=== PATIENT | female | born 1955 | race Two or more races ===

== ENCOUNTER → 2016-11-16 | Outpatient (CLI) | payer MEDICARE, OTHER ==
--- NOTE | 2016-11-29 02:50 | ECWPNPC ---
PATIENT NAME: MALCOLM ROSS : 1955 GENDER: FEMALE VISIT DATE: 11/16/2016 DISCHARGE DATE: 11/16/16 1426 VISIT LOCKED DATE TIME: PHYSICIAN: LAKSHMI IBRAHIM RESOURCE: LAKSHMI IBRAHIM REASON FOR APPOINTMENT 1. NECK W/C HISTORY OF PRESENT ILLNESS GENERAL: 61 YEAR OLD FEMALE PATIENT WITH HISTORY OF CHRONIC NECK PAIN. PATIENT DESCRIBES THE PAIN ACHING WITH THE PAIN COMING AND GOING AND A PAIN SCORE OF 2/10. 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 PATIENT REPORTS HAVING 3 NECKS SURGERIES SINCE THE ACCIDENT AND STATES THAT THEY HELPED FOR A PERIOD OF TIME AND THEN THE PAIN WOULD COME BACK. MRS. ROSS STATES THAT PHYSICAL THERAPY DOES HELP WITH PAIN AND INCREASES HER MOBILITY AND FUNCTIONALITY. PATIENT STATES THAT SHE WALKS 3 MILES A DAY TO STAY ACTIVE. CURRENTLY THE PATIENT IS USING NUCYNTA AND SHE STATES SHE USES THE MEDICATION NEEDED AND DOES NOT WANT TO USE MANY MEDICATIONS FOR THIS PROBLEM. PATIENT DENIES UNEXPLAINABLE WEIGHT LOSS, FEVER, CHILLS, NEW CHANGES ON HER URINARY OR BOWEL CONTROL. CURRENT MEDICATIONS TAKING NUCYNTA 75 MG TABLET 1 TABLET ORALLY EVERY 6 HRS TAKING SUMATRIPTAN SUCCINATE 50 MG TABLET 1 TABLET ORALLY Q 6 H PRN TAKING PRASHANT ALLERGY 180 MG TABLET 1 TABLET NEEDED ORALLY ONCE A DAY TAKING EXCEDRIN EXTRA STRENGTH 250-250-65 MG TABLET 1 TABLETS NEEDED ORALLY EVERY 6 HRS TAKING RANITIDINE HCL 300 MG TABLET TAKE ONE TABLET BY MOUTH AT BEDTIME ORAL TAKING NORTRIPTYLINE HCL 10 MG CAPSULE TAKE 1 CAP ORAL 1 TAB IN A.M., 2 IN P.M. TAKING CYCLOBENZAPRINE HCL 10 MG TABLET TAKE 1 TABLET BY MOUTH TWICE A DAY ORAL TAKING SIMVASTATIN 20 MG TABLET TAKE ONE TABLET BY MOUTH EVERY EVENING ORAL TAKING SYMBICORT 160-4.5 MCG/ACT AEROSOL INHALE TWO PUFFS BY MOUTH TWICE A DAY INHALATION PRN TAKING PREMPRO 0.625-5 MG TABLET TAKE ONE TABLET BY MOUTH EVERY DAY ORAL TAKING ESCITALOPRAM OXALATE 10 MG TABLET TAKE ONE TABLET BY MOUTH EVERY DAY ORAL TAKING PROAIR HFA 108 (90 BASE) MCG/ACT AEROSOL SOLUTION INHALE TWO PUFFS BY MOUTH EVERY 8 HOURS NEEDED INHALATION MEDICATION LIST REVIEWED AND RECONCILED WITH THE PATIENT PAST MEDICAL HISTORY HTN GERD MIGRAINE HEADACHES ANXIETY / DEPRESSION ASTHMA HIGH CHOLESTEROL ATYPICAL CHEST PAIN CHRONIC DIARRHEA CHRONIC SINUSITIS - ALLERGIC RHINITIS NECK / MUSCLE SPASM ON COMP ALLERGIES NOVACAINE: SEIZURE: ALLERGY PREDNISONE: HUGE HIVES: ALLERGY SURGICAL HISTORY NECK SURGERY C6-7 2005 / 2008 CARPAL TUNNEL RIGHT HAND 1999 BUNION RIGHT TOE 2001 RIGHT FOOT SURGERY 2006 TRIGGER FINGER RELEASE RIGHT THUMB 2010 NECK SPINAL FUSION 2014 SURGERY TO RIGHT GREAT TOE 2014 TONSILS TUMMY TUCK 2005 FAMILY HISTORY FATHER: 69 YRS, DIAGNOSED WITH HYPERTENSION, HEART DISEASE, CANCER MOTHER: 64 YRS FATHER--COLON CAMOTHER WIH PE, CHRONES, LEG ANEURISM. SOCIAL HISTORY GENERAL: TOBACCO USE ARE YOU A:FORMER SMOKER QUIT 1993 ALCOHOL SCREENING POINTS2 INTERPRETATIONNEGATIVE RECREATIONAL DRUG USE DRUG USE?NO CAFFEINE CAFFEINE USE?YES HOW OFTEN AND HOW MUCH? 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 DIET: REGULAR. EXERCISE: WALKS DAILY. MARITAL STATUS: SINGLE WITH LIFE PARTNER. OTHERS AT HOME: OTHER NON-RELATIVE--SIG. OTHER. PETS: 1 DOG. BUDDHISM [id number] [employer]VENT[employer] LANGUAGE LANGUAGES SPOKEN:CZECH EDUCATION LEVEL OF EDUCATION:NOT FINISHED COLLEGE LEARNING BARRIERS / SPECIAL NEEDS BARRIERS TO LEARNING?NO HEARING IMPAIRED?NO VISION IMPAIRED?NO COGNITIVELY IMPAIRED?NO READINESS TO LEARN?YES LEARNING PREFERENCES?YES :DEMONSTRATION/VERBAL INSTRUCTION EMOTIONAL BARRIERS?NO SPECIAL DEVICES?NO TICKET SALES SUPERVISOR NEEDED?NO PAIN CLINIC PFS, CLERGY, PUBLIC HEALTH REFERRALS PFS REFERRAL NEEDED?NO CLERGY REFERRAL NEEDED?NO PUBLIC HEALTH REFERRAL NEEDED?NO ADVANCE DIRECTIVES HEALTH CARE PROXY?YES NAME OF HCP AMRTI DIOROSITO CONTACT # FOR HCP [phone] (C) [phone] (H) DO YOU HAVE A COPY WITH YOU?YES DO YOU HAVE A DNR?NO LIVING WILL?YES DO YOU HAVE A COPY WITH YOU?YES POWER OF DRY ROOM ATTENDANT?YES NAME OF POA? JEREMÍAS HILL PHONE # OF POA? [phone] DO YOU HAVE A COPY WITH YOU?NO HAVE YOU HAD A COPY OF ANY ADVANCED DIRECTIVE (LISTED ABOVE) ON A PREVIOUS MEDICAL RECORDS AT [facility]?NO NO DOMESTIC VIOLENCE . PLAN OF CARE FOR THE PAIN CENTER REVIEWED WITH PATIENT AND SHE VERBALIZED UNDERSTANDING. AD. HOSPITALIZATION/MAJOR DIAGNOSTIC PROCEDURE SURGERIES VITAL SIGNS WT 163 LBS, HT 64 IN, BMI 27.98 INDEX, BP 152/77 MM HG, HR 75 /MIN, RR 18 /MIN, TEMP 98.5 F, OXYGEN SAT % 97, REVIEWED BY: AD. EXAMINATION GENERAL: PATIENT IS ALERT O X 3 AND COOPERATIVE. TENDERNESS IN THE CERVICAL AREA AND THE PARASPINAL MUSCLE GROUP ESPECIALLY IN THE LEFT SIDE. BANDS OF TISSUE, RESTRICTION OF MOVEMENT, AND PRESENCE OF TRIGGER POINTS IN THE CERVICAL AREA. PATIENT ABLE TO EXTEND NECK 15 DEGREES AND FLEX 25 DEGREES. ABDUCT BOTH ARMS TO SHOULDER LEVEL. LEFT ARM AND HAND BUDGET COORDINATOR IS WEAKER THEN THE RIGHT. PENDING CERVICAL MRI. ASSESSMENTS POSTLAMINECTOMY SYNDROME, NOT ELSEWHERE CLASSIFIED - M96.1 (PRIMARY) MYALGIA - M79.1 TREATMENT POSTLAMINECTOMY SYNDROME, NOT ELSEWHERE CLASSIFIED NOTES: WE DISCUSSED SEVERAL ISSUES WITH MRS. ROSS'S PAIN MANAGEMENT CASE. AT THIS TIME THE PATIENT WILL CONTINUE USING NUCYNTA NEEDED PRESCRIBED BY HER PRIMARY DOCTOR. I WOULD LIKE THE PATIENT TO START USING IBUPROFEN NEEDED. PATIENT WAS ADVISED TO USE MEDICATION WITH FOOD AND ADVISED OF THE POSSIBLE ISSUES THAT CAN ARISE WHEN USING TOO MUCH IBUPROFEN. DUE TO THE SPASTICITY IN THE LEFT CERVICAL AREA I WOULD LIKE TO MOVE FORWARD WITH TRIGGER POINT INJECTIONS. WE DISCUSSED THE RISKS, BENEFITS, AND ALTERNATIVES TO THE INJECTION AND THE PATIENT WOULD LIKE TO PROCEED. INSTRUCTIONS WERE GIVEN, QUESTIONS WERE ANSWERED, PATIENT REPORTS UNDERSTANDING AND AGREES WITH THE PLAN. I, MANJINDER CASTILLO, DOCUMENTED THE ABOVE INFORMATION ACTING A SCRIBE FOR DR. IBRAHIM. I HAVE REVIEWED THE ABOVE DOCUMENT, WRITTEN BY MANJINDER LEVINE AND I VERIFY THAT IT IS ACCURATE. DEAR DR. SMITH: THANK YOU FOR YOUR KIND REFERRAL OF MRS. VILLARREAL. YOU WANT TO DISCUSS HER CASE WITH ME PLEASE CALL ME AT THE PAIN CENTER AT [phone]. SINCERELY, LAKSHMI IBRAHIM MD PAIN MEDICINE.,TRIGGER POINT INJECTION: YOUR EXPERIENCE MATERIAL WAS PRINTED,TRIGGER POINT INJECTION MATERIAL WAS PRINTED. OTHERS START IBUPROFEN TABLET, 800 MG, 1 TABLET WITH FOOD OR MILK, ORALLY, EVERY 6 HOURS NEEDED FOR PAIN MDD3, 30 DAY(S), 50, REFILLS 2 PROCEDURES PN WORKMANS' COMP OPINION IN YOUR OPINION, WAS THE INCIDENT THAT THE PATIENT DESCRIBED THE COMPETENT MEDICAL CAUSE OF THIS INJURY/ILLNESS? YES ARE THE PATIENT'S COMPLAINTS CONSISTENT WITH HIS/HER HISTORY OF THE INJURY/ILLNESS? YES IS THE PATIENT'S HISTORY OF THE INJURY/ILLNESS CONSISTENT WITH YOUR OBJECTIVE FINDING? YES WHAT IS THE PERCENTAGE OF TEMPORARY IMPAIRMENT? MODERATE TO MARKED = 66.7% IS THE PATIENT WORKING? NO DOCTOR ON SITE: LAKSHMI GALLAGHER MD PREVENTIVE MEDICINE DISCUSSED PREPROCEDURE CARE AND WHAT TO EXPECT WITH TPI/ PT EXPRESSED UNDERSTANDING. PROCEDURE CODES FA211 ESTABILISHED PATIENT [facility] FACILITY CHARGE G8427 DOC MEDS VERIFIED W/PT OR RE G8730 PAIN ASSESS POS TOOL F/U PLAN DOC DISPOSITION & COMMUNICATION FOLLOW UP TPI NO STERIODS AFTER APPROVAL ELECTRONICALLY SIGNED BY LAKSHMI IBRAHIM MD ON 11/28/2016 AT 04:30 PM EDT DISCLAIMER : THIS IS A VISIT SUMMARY EXTRACTED FROM THE [employer] CHART. IT IS NOT A COPY OF THE [employer] PROGRESS NOTE. PAULINO
== END ==
LOC: M PAIN 12:40
PROVIDERS: ATTEND Anesthesiology
DX: M96.1 Postlaminectomy syndrome, not elsewhere classified (principal); M79.1 Myalgia; Z79.891 Long term (current) use of opiate analgesic; Z79.899 Other long term (current) drug therapy; Z87.891 Personal history of nicotine dependence; Z88.6 Allergy status to analgesic agent; Z88.8 Allergy status to other drugs, medicaments and biological substances

== ENCOUNTER → 2016-12-20 | Outpatient (CLI) | payer MEDICARE, OTHER ==
[~2016-12-20] MED LIST: BUPIVACAINE HCL 0.25% 10 ML VIAL As Ordered ONE; BUPIVACAINE HCL 0.25% 30 ML VIAL As Ordered ONE; diazePAM 5 MG TAB As Ordered ONE; oxyCODONE 5MG TAB As Ordered ONE
--- NOTE | 2016-12-25 23:26 | ECWPNPC ---
PATIENT NAME: MALCOLM ROSS : 1955 GENDER: FEMALE VISIT DATE: 12/20/2016 DISCHARGE DATE: 12/20/16 1135 VISIT LOCKED DATE TIME: PHYSICIAN: LAKSHMI IBRAHIM RESOURCE: LAKSHMI IBRAHIM REASON FOR APPOINTMENT 1. TPI CURRENT MEDICATIONS TAKING NUCYNTA 75 MG TABLET 1 TABLET ORALLY EVERY 6 HRS, NOTES: 12-19-16 0800 TAKING SUMATRIPTAN SUCCINATE 50 MG TABLET 1 TABLET ORALLY Q 6 H PRN, NOTES: NONE TAKING PRASHANT ALLERGY 180 MG TABLET 1 TABLET NEEDED ORALLY ONCE A DAY, NOTES: 12-16-16 TAKING EXCEDRIN EXTRA STRENGTH 250-250-65 MG TABLET 1 TABLETS NEEDED ORALLY EVERY 6 HRS, NOTES: 12-19-16 1400 TAKING RANITIDINE HCL 300 MG TABLET TAKE ONE TABLET BY MOUTH AT BEDTIME ORAL , NOTES: 12-18-16 TAKING NORTRIPTYLINE HCL 10 MG CAPSULE TAKE 1 CAP ORAL 1 TAB IN A.M., 2 IN P.M., NOTES: 12-19-161999 TAKING CYCLOBENZAPRINE HCL 10 MG TABLET TAKE 1 TABLET BY MOUTH TWICE A DAY ORAL , NOTES: 12-19-161999 TAKING SIMVASTATIN 20 MG TABLET TAKE ONE TABLET BY MOUTH EVERY EVENING ORAL , NOTES: 12-19-161999 TAKING SYMBICORT 160-4.5 MCG/ACT AEROSOL INHALE TWO PUFFS BY MOUTH TWICE A DAY INHALATION PRN, NOTES: WEEK AGO TAKING PREMPRO 0.625-5 MG TABLET TAKE ONE TABLET BY MOUTH EVERY DAY ORAL , NOTES: 12-19-161999 TAKING ESCITALOPRAM OXALATE 10 MG TABLET TAKE ONE TABLET BY MOUTH EVERY DAY ORAL , NOTES: 12-19-161999 TAKING PROAIR HFA 108 (90 BASE) MCG/ACT AEROSOL SOLUTION INHALE TWO PUFFS BY MOUTH EVERY 8 HOURS NEEDED INHALATION , NOTES: NONE NEEDED TAKING IBUPROFEN 800 MG TABLET 1 TABLET WITH FOOD OR MILK ORALLY EVERY 6 HOURS NEEDED FOR PAIN MDD3, NOTES: NONE MEDICATION LIST REVIEWED AND RECONCILED WITH THE PATIENT PAST MEDICAL HISTORY HTN GERD MIGRAINE HEADACHES ANXIETY / DEPRESSION ASTHMA HIGH CHOLESTEROL ATYPICAL CHEST PAIN CHRONIC DIARRHEA CHRONIC SINUSITIS - ALLERGIC RHINITIS NECK / MUSCLE SPASM ON COMP ALLERGIES NOVACAINE: SEIZURE: ALLERGY PREDNISONE: HUGE HIVES: ALLERGY VITAL SIGNS WT 169.6 LBS, HT 64 IN, BMI 29.11 INDEX, BP 150/92 MM HG, HR 77 /MIN, RR 16 /MIN, TEMP 98.9 F, OXYGEN SAT % 99%, NA INITIALS SC 10:27, REVIEWED BY: KG. ASSESSMENTS MYALGIA - M79.1 (PRIMARY) PROCEDURES PN TRIGGER POINT INJECTION NO STEROIDS PRE PROCEDURE DIAGNOSIS 1. MYALGIA 2. PAIN AT LEFT NECK AREA AND LEFT SHOULDER AREA POST PROCEDURE DIAGNOSIS 1. MYALGIA 2. PAIN AT LEFT NECK AREA AND LEFT SHOULDER AREA PROCEDURE TRIGGER POINT INJECTION AT LEFT NECK AREA AND LEFT SHOULDER AREA SURGEON DR. LAKSHMI IBRAHIM TECHNICAL DOCUMENTATION SPECIALIST NONE ANESTHESIA LOCAL PRE PROCEDURE NOTE 61 YEAR-OLD PATIENT WITH HISTORY OF CHRONIC PAIN AT LEFT SHOULDER AREA AND LEFT NECK AREA. I EVALUATED THE PATIENT AND REVIEWED THE CHART. THERE IS EVIDENCE OF BANDS OF TISSUE WITH RESTRICTION OF MOVEMENT AND PRESENCE OF TRIGGER POINT AT THE AFFECTED AREA. I WENT OVER THE RISKS, ALTERNATIVES, AND BENEFITS ASSOCIATED WITH THIS PROCEDURE. THE PATIENT WOULD LIKE TO PROCEED AND GAVE CONSENT TO PERFORM THE PROCEDURE. THE PATIENT DENIES UNEXPLAINABLE WEIGHT LOSS, FEVER, CHILLS, OR NEW CHANGES IN URINARY OR BOWEL CONTROL. DESCRIPTION OF PROCEDURE THE PATIENT WAS BROUGHT TO THE PROCEDURE ROOM AND PLACED IN THE SITTING PRONE POSITION. THE AREA WAS CLEANED WITH ALCOHOL. THE PROCEDURE WAS DONE USING ASEPTIC STERILE TECHNIQUES. I CHECKED LATERALITY AND THE LEVEL WHERE THE PROCEDURE WAS GOING TO BE PERFORMED WITH THE PATIENT AND THE SUPPORTING STAFF AT THE MOMENT OF THE TIME OUT IN THE PROCEDURE ROOM. USING A 25-GAUGE NEEDLE, TRIGGER POINTS WERE INJECTED AT THE LEFT NECK AREA AND LEFT SHOULDER AREA WITH A TOTAL OF 40 ML OF BUPIVACAINE 0.25%. AGREED WITH THE PATIENT THE PROCEDURE WAS DONE WITHOUT STEROIDS. THERE WAS NO EVIDENCE OF BLOOD, PARESTHESIA OR CEREBROSPINAL FLUID DURING THE PROCEDURE. THE PATIENT WAS SENT TO THE RECOVERY ROOM. THE PATIENT WAS MOVING THE EXTREMITIES AND DOING WELL. THERE WAS NO COMPLICATION DURING THE PROCEDURE. POST PROCEDURE NOTE THE PATIENT WILL BE SEEN IN A FOLLOW UP IN THE NEXT FEW WEEKS. INSTRUCTIONS WERE GIVEN, QUESTIONS WERE ANSWERED, AND THE PATIENT EXPRESSED UNDERSTANDING AND AGREED WITH THE PLAN. I, MANJINDER CASTILLO, DOCUMENTED THE ABOVE INFORMATION ACTING A SCRIBE FOR DR. IBRAHIM. I HAVE REVIEWED THE ABOVE DOCUMENT, WRITTEN BY MANJINDER LEVINE AND I VERIFY THAT IT IS ACCURATE PROCEDURE CODES 88532 INJ TRIGGER POINT 06/13 [facility] DISPOSITION & COMMUNICATION FOLLOW UP 3 WEEKS ELECTRONICALLY SIGNED BY LAKSHMI IBRAHIM MD ON 12/25/2016 AT 09:42 PM EDT DISCLAIMER : THIS IS A VISIT SUMMARY EXTRACTED FROM THE [employer] CHART. IT IS NOT A COPY OF THE [employer] PROGRESS NOTE. PAULINO
== END ==
LOC: M PAIN 10:00
PROVIDERS: ATTEND Anesthesiology
DX: G89.29 Other chronic pain (principal); M79.1 Myalgia; M54.2 Cervicalgia; M25.512 Pain in left shoulder; I10 Essential (primary) hypertension; K21.9 Gastro-esophageal reflux disease without esophagitis; F32.9 Major depressive disorder, single episode, unspecified; F41.9 Anxiety disorder, unspecified; E78.00 Pure hypercholesterolemia, unspecified; Z88.8 Allergy status to other drugs, medicaments and biological substances; Z79.899 Other long term (current) drug therapy

== ENCOUNTER → 2017-01-04 | Outpatient (CLI) | payer MEDICARE, OTHER ==
--- NOTE | 2017-01-23 00:11 | ECWPNPC ---
PATIENT NAME: MALCOLM ROSS : 1955 GENDER: FEMALE VISIT DATE: 01/04/2017 DISCHARGE DATE: 01/04/17 1554 VISIT LOCKED DATE TIME: PHYSICIAN: LAKSHMI IBRAHIM RESOURCE: LAKSHMI IBRAHIM REASON FOR APPOINTMENT 1. NECK PAIN W/C HISTORY OF PRESENT ILLNESS HISTORY OF PRESENT ILLNESS: PAIN THE PATIENT DESCRIBES THE PAIN... 61 YEAR OLD FEMALE PATIENT WITH HISTORY OF CHRONIC NECK PAIN. PATIENT DESCRIBES THE PAIN ACHING WITH THE PAIN COMING AND GOING AND A PAIN SCORE OF 1/10. 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 MR. ROSS RECEIVED TRIGGER POINT INJECTIONS ON 12/20/16 AND STATES THAT SHE HAS HAD OVER 50% RELIEF FROM THE PAIN WITH INCREASED MOBILITY AND FUNCTIONALITY. PATIENT ALSO REPORTS USING LESS OF THE NUCYNTA SINCE THE INJECTION. PATIENT REPORTS HAVING 3 NECKS SURGERIES SINCE THE ACCIDENT AND STATES THAT THEY HELPED FOR A PERIOD OF TIME AND THEN THE PAIN WOULD COME BACK. MRS. ROSS STATES THAT PHYSICAL THERAPY DOES HELP WITH PAIN AND INCREASES HER MOBILITY AND FUNCTIONALITY. PATIENT STATES THAT SHE WALKS 3 MILES A DAY TO STAY ACTIVE. CURRENTLY THE PATIENT IS USING NUCYNTA AND SHE STATES SHE USES THE MEDICATION NEEDED AND DOES NOT WANT TO USE MANY MEDICATIONS FOR THIS PROBLEM. PATIENT DENIES UNEXPLAINABLE WEIGHT LOSS, FEVER, CHILLS, NEW CHANGES ON HER URINARY OR BOWEL CONTROL. FALL RISK SCREENING: SCREENING :NO FALLS IN THE PAST YEAR CURRENT MEDICATIONS TAKING NUCYNTA 75 MG TABLET 1 TABLET ORALLY EVERY 6 HRS, NOTES: 12-19-16 0800 TAKING SUMATRIPTAN SUCCINATE 50 MG TABLET 1 TABLET ORALLY Q 6 H PRN, NOTES: NONE TAKING PRASHANT ALLERGY 180 MG TABLET 1 TABLET NEEDED ORALLY ONCE A DAY, NOTES: 12-16-16 TAKING EXCEDRIN EXTRA STRENGTH 250-250-65 MG TABLET 1 TABLETS NEEDED ORALLY EVERY 6 HRS, NOTES: 12-19-16 1400 TAKING RANITIDINE HCL 300 MG TABLET TAKE ONE TABLET BY MOUTH AT BEDTIME ORAL , NOTES: 12-18-16 TAKING NORTRIPTYLINE HCL 10 MG CAPSULE TAKE 1 CAP ORAL 1 TAB IN A.M., 2 IN P.M., NOTES: 12-19-161999 TAKING CYCLOBENZAPRINE HCL 10 MG TABLET TAKE 1 TABLET BY MOUTH TWICE A DAY ORAL , NOTES: 12-19-161999 TAKING SIMVASTATIN 20 MG TABLET TAKE ONE TABLET BY MOUTH EVERY EVENING ORAL , NOTES: 12-19-161999 TAKING SYMBICORT 160-4.5 MCG/ACT AEROSOL INHALE TWO PUFFS BY MOUTH TWICE A DAY INHALATION PRN, NOTES: WEEK AGO TAKING PREMPRO 0.625-5 MG TABLET TAKE ONE TABLET BY MOUTH EVERY DAY ORAL , NOTES: 12-19-161999 TAKING ESCITALOPRAM OXALATE 10 MG TABLET TAKE ONE TABLET BY MOUTH EVERY DAY ORAL , NOTES: 12-19-161999 TAKING PROAIR HFA 108 (90 BASE) MCG/ACT AEROSOL SOLUTION INHALE TWO PUFFS BY MOUTH EVERY 8 HOURS NEEDED INHALATION , NOTES: NONE NEEDED TAKING IBUPROFEN 800 MG TABLET 1 TABLET WITH FOOD OR MILK ORALLY EVERY 6 HOURS NEEDED FOR PAIN MDD3, NOTES: NONE MEDICATION LIST REVIEWED AND RECONCILED WITH THE PATIENT PAST MEDICAL HISTORY HTN GERD MIGRAINE HEADACHES ANXIETY / DEPRESSION ASTHMA HIGH CHOLESTEROL ATYPICAL CHEST PAIN CHRONIC DIARRHEA CHRONIC SINUSITIS - ALLERGIC RHINITIS NECK / MUSCLE SPASM ON COMP ALLERGIES NOVACAINE: SEIZURE: ALLERGY PREDNISONE: HUGE HIVES: ALLERGY REVIEW OF SYSTEMS REVIEWED BY: PROVIDER: LAKSHMI IBRAHIM MD . CONSTITUTIONAL: ANY CHANGE IN YOUR MEDICAL CONDITION? NO . CHILLS NO . FEVER NO . INFECTION: DO YOU HAVE NEW INFECTIONS? NO . DO YOU HAVE HISTORY OF MRSA? NO . MUSCULOSKELETAL: ANY NEW PATTERNS OF PAIN OR NUMBNESS? NO . GASTROENTEROLOGY: ANY NEW CHANGE IN BOWEL CONTROL? NO . GENITOURINARY: ANY NEW CHANGE IN BLADDER CONTROL? NO . IS THERE A CHANCE YOU COULD BE ? NO . HEMATOLOGY/LYMPH: DO YOU TAKE ANY BLOOD THINNERS? (FOR EXAMPLE- COUMADIN, PLAVIX, AGGRENOX, PLATEL, PRADAXA, OR XARELTO) NO . WHEN WAS YOUR LAST DOSE? DATE: TIME: . NEUROLOGY: HAVE YOU FALLEN IN THE PAST 6 MONTHS? NO . ANY NEW EXTREMITY NUMBNESS OR WEAKNESS? NO . CARDIOLOGY: DO YOU HAVE A PACEMAKER OR DEFIBRILLATOR? NO . RESPIRATORY: HAVE YOU BEEN SICK IN THE PAST WEEK? NO . FEVER NO . FLU LIKE SYMPTOMS? NO . COUGH NO . INTEGUMENTARY: DO YOU HAVE ANY RASHES OR OPEN SORES? NO . ALLERGIC/IMMUNO: ARE YOU ALLERGIC TO SHELLFISH OR IV DYE? NO . ANY NEW ALLERGIES? NO . PSYCHIATRIC: DO YOU HAVE THOUGHTS OF HURTING YOURSELF OR SOMEONE ELSE? NO . ARE YOU ABUSED, NEGLECTED, OR IN AN UNSAFE ENVIRONMENT? NO . ENDOCRINOLOGY: ARE YOU DIABETIC? NO . OTHER: DO YOU NEED ANY PRESCRIPTIONS? NO . IF YES, PLEASE LIST: ____ . ANY NEW PROBLEMS WITH YOUR MEDICATIONS? NO . WHEN DID YOU LAST EAT? ____ . WHEN DID YOU LAST DRINK? ____ . WHAT DID YOU LAST DRINK? ____ . NAME OF PERSON DRIVING YOU HOME? ____ . DO YOU HAVE ANY OTHER QUESTIONS OR CONCERNS NO . VITAL SIGNS WT 167.4 LBS, HT 64 IN, BMI 28.73 INDEX, BP 142/70 MM HG, HR 84 /MIN, RR 16 /MIN, TEMP 99.4 F, OXYGEN SAT % 96%, NA INITIALS TL 1459. EXAMINATION : PATIENT IS ALERT O X 3 AND COOPERATIVE. TENDERNESS IN THE CERVICAL AREA AND THE PARASPINAL MUSCLE GROUP ESPECIALLY IN THE LEFT SIDE. BANDS OF TISSUE, RESTRICTION OF MOVEMENT, AND PRESENCE OF TRIGGER POINTS IN THE CERVICAL AREA. PATIENT ABLE TO EXTEND NECK 15 DEGREES AND FLEX 25 DEGREES. ABDUCT BOTH ARMS TO SHOULDER LEVEL. LEFT ARM AND HAND SCORER SINGLE IS WEAKER THEN THE RIGHT. PENDING CERVICAL MRI. ASSESSMENTS MYALGIA - M79.1 (PRIMARY) POSTLAMINECTOMY SYNDROME, NOT ELSEWHERE CLASSIFIED - M96.1 TREATMENT MYALGIA NOTES: WE DISCUSSED SEVERAL ISSUES WITH MRS. ROSS'S PAIN MANAGEMENT CASE. AT THIS TIME THE PATIENT WILL CONTINUE USING NUCYNTA NEEDED PRESCRIBED BY HER PRIMARY DOCTOR. I WOULD LIKE THE PATIENT TO START USING IBUPROFEN NEEDED. PATIENT WAS ADVISED TO USE MEDICATION WITH FOOD AND ADVISED OF THE POSSIBLE ISSUES THAT CAN ARISE WHEN USING TOO MUCH IBUPROFEN. PATIENT REPORTS HAVING OVER 50% RELIEF FROM THE PAIN AFTER HAVING THE TRIGGER POINT INJECTION, PATIENT REPORTS USING LESS MEDICATION WELL. AT THIS TIME WE WILL NOT HOLD ANY INTERVENTIONS DUE TO THE PAIN RELIEF. PATIENT WILL RETURN IN 2 MONTHS. INSTRUCTIONS WERE GIVEN, QUESTIONS WERE ANSWERED, PATIENT REPORTS UNDERSTANDING AND AGREES WITH THE PLAN. I, MANJINDER CASTILLO, DOCUMENTED THE ABOVE INFORMATION ACTING A SCRIBE FOR DR. IBRAHIM. I HAVE REVIEWED THE ABOVE DOCUMENT, WRITTEN BY MANJINDER LEVINE AND I VERIFY THAT IT IS ACCURATE. PROCEDURES PN WORKMANS' COMP OPINION IN YOUR OPINION, WAS THE INCIDENT THAT THE PATIENT DESCRIBED THE COMPETENT MEDICAL CAUSE OF THIS INJURY/ILLNESS? YES ARE THE PATIENT'S COMPLAINTS CONSISTENT WITH HIS/HER HISTORY OF THE INJURY/ILLNESS? YES IS THE PATIENT'S HISTORY OF THE INJURY/ILLNESS CONSISTENT WITH YOUR OBJECTIVE FINDING? YES WHAT IS THE PERCENTAGE OF TEMPORARY IMPAIRMENT? MODERATE TO MARKED = 66.7% IS THE PATIENT WORKING? NO DOCTOR ON SITE: LAKSHMI GALLAGHER MD PROCEDURE CODES FA211 ESTABILISHED PATIENT [facility] FACILITY CHARGE G8427 DOC MEDS VERIFIED W/PT OR RE G8730 PAIN ASSESS POS TOOL F/U PLAN DOC DISPOSITION & COMMUNICATION FOLLOW UP 2 MONTHS ELECTRONICALLY SIGNED BY LAKSHMI IBRAHIM MD ON 01/22/2017 AT 08:02 AM EDT DISCLAIMER : THIS IS A VISIT SUMMARY EXTRACTED FROM THE [employer] CHART. IT IS NOT A COPY OF THE [employer] PROGRESS NOTE. PAULINO
== END ==
LOC: M PAIN 14:40
PROVIDERS: ATTEND Anesthesiology
DX: M96.1 Postlaminectomy syndrome, not elsewhere classified (principal); M54.2 Cervicalgia; M79.1 Myalgia; I10 Essential (primary) hypertension; K21.9 Gastro-esophageal reflux disease without esophagitis; G43.909 Migraine, unspecified, not intractable, without status migrainosus; F41.9 Anxiety disorder, unspecified; F32.9 Major depressive disorder, single episode, unspecified; J45.909 Unspecified asthma, uncomplicated; E78.00 Pure hypercholesterolemia, unspecified; Z88.8 Allergy status to other drugs, medicaments and biological substances; Z79.899 Other long term (current) drug therapy

== ENCOUNTER → 2017-05-11 | Outpatient (CLI) | payer OTHER | LOC: M PAIN 12:30 | PROVIDERS: ATTEND Anesthesiology | DX: Z53.29 Procedure and treatment not carried out because of patient's decision for other reasons (principal) ==